=== PATIENT | female | born 1955 | race Caucasian/White ===

== ENCOUNTER 2023-10-03 10:07 | Emergency (ER) | payer MEDICARE ==
[~2023-10-03] VITALS: Ht 160 cm; Wt 83.7 kg
[2023-10-03] MEDS: ketorolac tromethamine 15mg/ml inj. IM ONE (15:41)
[2023-10-03 16:09] VITALS: BP 141/76; PULSE 67; RESP 14; TEMP 98.1; O2SAT 96
== END 2023-10-03 16:13 | disposition home or self-care (01) ==
LOC: ER 10:09
DX: S09.8XXA Other specified injuries of head, initial encounter (principal); Z88.0 Allergy status to penicillin; W18.39XA Other fall on same level, initial encounter; Y93.89 Activity, other specified; Y92.89 Other specified places as the place of occurrence of the external cause; Y99.8 Other external cause status
CPT/HCPCS: 70450; 70486; 73140; 96372; 99285; J1885